=== PATIENT | female | born 2000 | race Caucasian/White ===

== ENCOUNTER 2021-01-15 12:23 | Emergency (ER) | payer OTHER ==
[~2021-01-15] VITALS: Ht 162.6 cm; Wt 81.8 kg
[2021-01-15 12:24] VITALS: BP 125/67
[2021-01-15] MEDS ORDERED: CIPROFLOXACIN HCL 250 MG TABLET PO ONE (14:30)
[2021-01-15] MEDS ORDERED: ACETAMINOPHEN 500 MG TABLET PO ONE (14:30)
== END 2021-01-15 15:54 | disposition home or self-care (01) ==
LOC: EMS 12:26
DX: S06.0X9A Concussion with loss of consciousness of unspecified duration, initial encounter (principal); S91.331A Puncture wound without foreign body, right foot, initial encounter; W18.09XA Striking against other object with subsequent fall, initial encounter; Y93.89 Activity, other specified; Y92.89 Other specified places as the place of occurrence of the external cause; Y99.8 Other external cause status
CPT/HCPCS: 99283

== ENCOUNTER 2022-10-30 12:01 | Emergency (ER) | payer OTHER ==
[~2022-10-30] VITALS: Ht 154.9 cm; Wt 72.7 kg
[2022-10-30 12:41] VITALS: BP 127/84
== END 2022-10-30 13:50 | disposition home or self-care (01) ==
LOC: EMS 12:13
DX: S60.222A Contusion of left hand, initial encounter (principal); F10.129 Alcohol abuse with intoxication, unspecified; W01.0XXA Fall on same level from slipping, tripping and stumbling without subsequent striking against object, initial encounter; Y93.89 Activity, other specified; Y92.89 Other specified places as the place of occurrence of the external cause; Y99.8 Other external cause status; Y90.9 Presence of alcohol in blood, level not specified
CPT/HCPCS: 99284; 73110-TC; 73130-TC; Z7502